=== PATIENT | female | born 1960 | race Caucasian/White ===

== ENCOUNTER 2018-10-17 13:41 | Emergency (ER) | payer BC ==
[~2018-10-17] VITALS: Ht 157.5 cm; Wt 83.0 kg
[2018-10-17 13:51] VITALS: BP 143/88
[2018-10-17] MEDS ORDERED: LEVO750T21 PO (14:51)
== END 2018-10-17 14:58 | disposition home or self-care (01) ==
LOC: ER 13:42
DX: J18.9 Pneumonia, unspecified organism (principal)
CPT/HCPCS: 71046; 99283

== ENCOUNTER 2019-10-08 20:09 | Emergency (ER) | payer BC ==
[~2019-10-08] VITALS: Ht 157.5 cm; Wt 86.3 kg
[2019-10-08] MEDS ORDERED: normal saline 1000ML IV soln IVB ONE (21:00)
[2019-10-08] MEDS ORDERED: normal saline 1000ML IV soln IV ONE (21:00)
[2019-10-08 21:02] LABS: BASOPHILS # (AUTO) 0.1 X10'3 (0-0.2); BASOPHILS % (AUTO) 0.4 % (0-1); EOSINOPHILS # (AUTO) 0.7 X10'3 (0-0.9); EOSINOPHILS % (AUTO) 4.4 % (0-6); HEMATOCRIT 43.4 % (35.0-45.0); HEMOGLOBIN 14.4 g/dl (12.0-16.0); LYMPHOCYTES # (AUTO) 1.1 X10'3 (1.1-4.8); LYMPHOCYTES % (AUTO) 6.9 % (21-51); MEAN CORPUSCULAR HEMOGLOBIN 29.1 PG (27.0-31.0); MEAN CORPUSCULAR HGB CONC 33.1 g/dL (33.0-36.5); MEAN CORPUSCULAR VOLUME 87.8 FL (78-98); MEAN PLATELET VOLUME 8.7 FL (7.4-10.4); MONOCYTES # (AUTO) 0.9 X10'3 (0-0.9); MONOCYTES % (AUTO) 5.5 % (2-12); NEUTROPHILS # (AUTO) 13.4 X10'3 (1.8-7.7); NEUTROPHILS % (AUTO) 82.8 % (42-75); PLATELET COUNT 192 X10'3 (140-440); RED BLOOD COUNT 4.94 X10'6 (4.20-5.60); RED CELL DISTRIBUTION WIDTH 13.9 % (11.5-14.5); WHITE BLOOD COUNT 16.1 X10'3 (4.5-11.0)
[2019-10-08 21:10] LABS: PARTIAL THROMBOPLASTIN TIME 25 SECONDS (22-32)
[2019-10-08 21:14] LABS: ALANINE AMINOTRANSFERASE 23 U/L (12-78); ALBUMIN 3.8 G/DL (3.4-5.0); ALBUMIN/GLOBULIN RATIO 1.1 (1.1-1.5); ALKALINE PHOSPHATASE 86 IU/L (46-116); ANION GAP 7 (8-16); ASPARTATE AMINO TRANSFERASE 16 U/L (10-37); BILIRUBIN,TOTAL 0.5 MG/DL (0.1-1.0); BLOOD UREA NITROGEN 18 MG/DL (7-18); BUN/CREATININE RATIO 16.7 (6.6-38.0); CALCIUM 8.7 MG/DL (8.5-10.1); CHLORIDE 106 MMOL/L (99-107); CREATININE 1.08 MG/DL (0.40-0.90); GLUCOSE 130 MG/DL (70-104); POTASSIUM 4.2 MMOL/L (3.5-5.1); SODIUM 140 MMOL/L (135-145); TOTAL CARBON DIOXIDE 27.2 MMOL/L (24-32); TOTAL PROTEIN 7.2 G/DL (6.4-8.2); eGFR 52 ML/MIN
[2019-10-08 21:25] LABS: C-REACTIVE PROTEIN 2.77 MG/DL (0.0-0.5); LACTATE DEHYDROGENASE 275 U/L (81-234)
[2019-10-08] MEDS ORDERED: AMOX-117 PO (21:37)
--- NOTE | 2019-10-08 21:38 | NUR ---
PATIENT'S IV INFILTRATED, GRACIE IBRAHIM AWARE VERBAL ORDER TO DC IV AND FLUIDS. PATIENT ABLE TO DRINK FLUIDS ORALLY AT THIS TIME
[2019-10-08 21:40] VITALS: BP 173/86
== END 2019-10-08 22:19 | disposition home or self-care (01) ==
LOC: ER 20:09
DX: J18.9 Pneumonia, unspecified organism (principal); Z20.828 Contact with and (suspected) exposure to other viral communicable diseases; R06.02 Shortness of breath; R05 Cough; R50.9 Fever, unspecified; Z79.2 Long term (current) use of antibiotics
CPT/HCPCS: 36415; 71045; 80053; 83605; 83615; 83880; 84145; 85025; 85610; 85730; 86140; 87040; 87635; 93005; 99285

== ENCOUNTER 2019-10-11 16:18 | Inpatient (IN) | payer BC ==
[~2019-10-11] VITALS: Ht 157.5 cm; Wt 86.3 kg
[~2019-10-11 16:18] MED LIST: AMOX-117 PO
[2019-10-11 17:03] LABS: BASOPHILS % (AUTO) 0.3 % (0-1); EOSINOPHILS # (AUTO) 0.4 X10'3 (0-0.9); EOSINOPHILS % (AUTO) 3.4 % (0-6); HEMATOCRIT 39.1 % (35.0-45.0); HEMOGLOBIN 13.1 g/dl (12.0-16.0); LYMPHOCYTES # (AUTO) 0.4 X10'3 (1.1-4.8); LYMPHOCYTES % (AUTO) 3.4 % (21-51); MEAN CORPUSCULAR HEMOGLOBIN 29.1 PG (27.0-31.0); MEAN CORPUSCULAR HGB CONC 33.4 g/dL (33.0-36.5); MEAN CORPUSCULAR VOLUME 87.1 FL (78-98); MEAN PLATELET VOLUME 9.1 FL (7.4-10.4); MONOCYTES # (AUTO) 0.7 X10'3 (0-0.9); MONOCYTES % (AUTO) 5.1 % (2-12); NEUTROPHILS # (AUTO) 11.4 X10'3 (1.8-7.7); NEUTROPHILS % (AUTO) 87.8 % (42-75); PLATELET COUNT 180 X10'3 (140-440); RED BLOOD COUNT 4.49 X10'6 (4.20-5.60); RED CELL DISTRIBUTION WIDTH 14.1 % (11.5-14.5)
[2019-10-11 17:13] LABS: PARTIAL THROMBOPLASTIN TIME 31 SECONDS (22-32)
[2019-10-11 17:19] LABS: ALANINE AMINOTRANSFERASE 27 U/L (12-78); ALBUMIN 2.8 G/DL (3.4-5.0); ALBUMIN/GLOBULIN RATIO 0.6 (1.1-1.5); ALKALINE PHOSPHATASE 109 IU/L (46-116); ANION GAP 10 (8-16); ASPARTATE AMINO TRANSFERASE 20 U/L (10-37); BILIRUBIN,TOTAL 0.6 MG/DL (0.1-1.0); BLOOD UREA NITROGEN 13 MG/DL (7-18); BUN/CREATININE RATIO 14.8 (6.6-38.0); CALCIUM 9.3 MG/DL (8.5-10.1); CHLORIDE 100 MMOL/L (99-107); CREATININE 0.88 MG/DL (0.40-0.90); GLUCOSE 146 MG/DL (70-104); POTASSIUM 3.4 MMOL/L (3.5-5.1); SODIUM 137 MMOL/L (135-145); TOTAL CARBON DIOXIDE 27.4 MMOL/L (24-32); TOTAL PROTEIN 7.7 G/DL (6.4-8.2); eGFR 66 ML/MIN
[2019-10-11 17:23] LABS: TOTAL CELLS COUNTED 100
[2019-10-11 17:25] LABS: PLATELET ESTIMATE NORMAL; POLYCHROMASIA FEW
[2019-10-11] MEDS ORDERED: normal saline 1000ML IV soln IVB ONE (17:45)
[2019-10-11] MEDS ORDERED: CefTRIAXone/D5W-Rocephin 1gm 50 ML IV ONE (17:45)
[2019-10-11] MEDS ORDERED: azithromycin/NS 500mg/250ml 250 ML IV ONE (17:45)
[2019-10-11] MEDS ORDERED: morphine 2 MG/ML inj. syringe IV ONE (17:45)
--- NOTE | 2019-10-11 18:18 | NUR ---
PT IS A DIFFICULT IV START, SYMONE RAMOS WILL TRY TO START IV WITH ASSIST OF US.
[2019-10-11] MEDS ORDERED: morphine 4 MG/ML inj SYRINge IM ONE (18:30)
[2019-10-11] MEDS ORDERED: ondansetron/PF 4mg/2ml inj IV ONE (18:45)
[2019-10-11] MEDS ORDERED: acetaminophen 325mg tablet PO ONE (19:05)
[2019-10-11] MEDS ORDERED: fentaNYL/PF 50MCG/1 ML 2ML syringe IV ONE (19:10)
[2019-10-11] MEDS ORDERED: magnesium 4gm in 100ml NS 100 ML IV PRN (19:20)
[2019-10-11] MEDS ORDERED: ipratropium/albuterol 3ml nebule NEB PRN (19:20)
[2019-10-11] MEDS ORDERED: magnesium Cl slow-release 64mg tablet PO PRN (19:20)
[2019-10-11] MEDS ORDERED: mag hydrox/Alum hydrox/simeth 30ml oral suspension PO PRN (19:20)
[2019-10-11] MEDS ORDERED: magnesium 2GM in 50ml NS 50 ML IV PRN (19:20)
[2019-10-11] MEDS ORDERED: potassium Cl 20 mEq SR tablet PO PRN (19:20)
[2019-10-11] MEDS ORDERED: ondansetron/PF 4mg/2ml inj IV PRN (19:20)
[2019-10-11] MEDS ORDERED: potassium CL 10mEq/100ml bag 100 ML IV PRN ×2 (19:20)
[2019-10-11] MEDS ORDERED: normal saline 1000ml 1,000 ML IV SCH (20:25)
[2019-10-11] MEDS ORDERED: iohexol 350MG/ML 100ml bottle IV ONE (20:41)
[2019-10-11] MEDS ORDERED: HYDR-3972 PO (21:23)
[2019-10-11] MEDS ORDERED: FLUT1BLS3 INH (21:23)
[2019-10-11] MEDS ORDERED: TRAZ-251 PO (21:23)
[2019-10-11] MEDS: normal saline 1000ml 1,000 ML IV SCH (21:45)
[2019-10-11] MEDS: K and/or MAG REPLACEMENT MC SCH (21:50)
--- NOTE | 2019-10-11 21:50 | NUR ---
Received report from Jane ASHBY in the ER. Pt arrived on the unit via gurney on R/A and was able to ambulate to her bed. IV was SL. Pt had no signs of distress, although she was very painful, 02/17. Will continue to monitor.
[2019-10-11] MEDS ORDERED: HYDROmorphone inj. 0.5 MG/0.5 ML DISP.SYRIN IV PRN (21:55)
[2019-10-11 22:00] VITALS: BP 135/78
[2019-10-11] MEDS: oxyCODONE IR 5mg (immed. release) tablet PO PRN (22:25)
[2019-10-12] MEDS: piperacillin/tazo 4.5gm/100ml 100 ML IV SCH ×4 (00:34→23:59)
[2019-10-12] MEDS: HYDROmorphone 1 mg/ml syringe IV PRN (00:34)
[2019-10-12] MEDS: albuterol 2.5 MG/3 ML nebule NEB SCH ×3 (03:00→20:19)
[2019-10-12 04:49] LABS: BASOPHILS % (AUTO) 0.2 % (0-1); EOSINOPHILS # (AUTO) 0.1 X10'3 (0-0.9); EOSINOPHILS % (AUTO) 0.6 % (0-6); HEMATOCRIT 37.8 % (35.0-45.0); HEMOGLOBIN 12.5 g/dl (12.0-16.0); LYMPHOCYTES # (AUTO) 0.6 X10'3 (1.1-4.8); LYMPHOCYTES % (AUTO) 4.6 % (21-51); MEAN CORPUSCULAR HEMOGLOBIN 28.9 PG (27.0-31.0); MEAN CORPUSCULAR HGB CONC 33.1 g/dL (33.0-36.5); MEAN CORPUSCULAR VOLUME 87.3 FL (78-98); MEAN PLATELET VOLUME 9.4 FL (7.4-10.4); MONOCYTES % (AUTO) 7.8 % (2-12); NEUTROPHILS # (AUTO) 11.1 X10'3 (1.8-7.7); NEUTROPHILS % (AUTO) 86.8 % (42-75); PLATELET COUNT 172 X10'3 (140-440); RED BLOOD COUNT 4.33 X10'6 (4.20-5.60); RED CELL DISTRIBUTION WIDTH 14.3 % (11.5-14.5); WHITE BLOOD COUNT 12.8 X10'3 (4.5-11.0)
[2019-10-12 05:04] LABS: ALANINE AMINOTRANSFERASE 24 U/L (12-78); ALBUMIN 2.3 G/DL (3.4-5.0); ALBUMIN/GLOBULIN RATIO 0.5 (1.1-1.5); ALKALINE PHOSPHATASE 100 IU/L (46-116); ANION GAP 6 (8-16); ASPARTATE AMINO TRANSFERASE 15 U/L (10-37); BILIRUBIN,TOTAL 0.4 MG/DL (0.1-1.0); BLOOD UREA NITROGEN 11 MG/DL (7-18); BUN/CREATININE RATIO 12.6 (6.6-38.0); CALCIUM 8.5 MG/DL (8.5-10.1); CHLORIDE 102 MMOL/L (99-107); CREATININE 0.87 MG/DL (0.40-0.90); GLUCOSE 132 MG/DL (70-104); MAGNESIUM 1.9 MG/DL (1.5-2.4); POTASSIUM 3.8 MMOL/L (3.5-5.1); SODIUM 134 MMOL/L (135-145); TOTAL PROTEIN 6.6 G/DL (6.4-8.2); eGFR 67 ML/MIN
[2019-10-12 05:11] LABS: CLARITY,URINE CLEAR (Clear); COLOR,URINE YELLOW (Yellow); GLUCOSE, URINE NEGATIVE (Neg); KETONES,URINE TRACE mg/dl (Neg); LEUKOCYTE ESTERASE ,URINE NEGATIVE (Neg); NITRITES, URINE NEGATIVE (Neg); OCCULT BLOOD,URINE NEGATIVE (Neg); PROTEIN,URINE 100 mg/dl (Neg)
[2019-10-12 05:16] LABS: UA COLLECTION TYPE NON-SPECIFIED
[2019-10-12 05:17] LABS: BACTERIA,URINE NONE SEEN /HPF (Neg); RBC,URINE 0-2 /HPF (0-2); SQUAMOUS EPITHELIAL CELL,UR FEW /LPF (FEW); WBC,URINE 0-4 /HPF (0-4)
[2019-10-12] MEDS: normal saline 1000ml 1,000 ML IV SCH ×2 (05:41→15:16)
[2019-10-12] MEDS: acetaminophen 325mg tablet PO PRN ×2 (05:42→16:32)
[2019-10-12] MEDS: oxyCODONE IR 5mg (immed. release) tablet PO PRN ×3 (05:43→20:18)
[2019-10-12 06:00] VITALS: BP 151/86
--- NOTE | 2019-10-12 06:49 | NUR ---
Problems reprioritized. Patient report given, questions answered & plan of care reviewed with Blanca ASHBY.
--- NOTE | 2019-10-12 07:11 | NUR ---
Patient in room ORTH[facility] 4018. I have received report from SYMONE IRIZARRY and had the opportunity to ask questions and assume patient care.
[2019-10-12] MEDS: K and/or MAG REPLACEMENT MC SCH ×2 (07:25→19:27)
[2019-10-12] MEDS: budesonide 0.5mg/2ml UD nebule IH SCH ×2 (08:39→19:57)
[2019-10-12] MEDS: enoxaparin 40mg/0.4ml syringe SQ SCH (09:07)
[2019-10-12 10:00] VITALS: BP 130/77
[2019-10-12] MEDS ORDERED: pneumococcal 23-VAL P-sac vacc 25 mcg/0.5ml vial IMVAC ONE (10:00)
[2019-10-12] MEDS: VANCOmycin 1250MG/NS 250ml Bag 250 ML IV SCH ×2 (12:52→22:11)
[2019-10-12] MEDS: azithromycin 250mg tablet PO SCH (12:55)
[2019-10-12 18:00] VITALS: BP 155/93
--- NOTE | 2019-10-12 18:22 | NUR ---
Patient in room ORTHO 4018. I have received report from Blanca ASHBY and had the opportunity to ask questions and assume patient care.
--- NOTE | 2019-10-12 18:43 | NUR ---
Problems reprioritized. Patient report given, questions answered & plan of care reviewed with SYMONE IRIZARRY.
[2019-10-12] MEDS: lactobacillus rhamnosus 10,000 MMU CELLS/CAPSULE PO SCH (20:17)
[2019-10-12] MEDS: traZODone 50mg tablet PO SCH (20:18)
[2019-10-12 22:00] VITALS: BP 152/87
[2019-10-13] MEDS: HYDROmorphone 1 mg/ml syringe IV PRN (00:15)
[2019-10-13] MEDS: albuterol 2.5 MG/3 ML nebule NEB SCH ×4 (03:00→20:17)
[2019-10-13] MEDS: normal saline 1000ml 1,000 ML IV SCH ×3 (03:30→21:35)
[2019-10-13 05:00] LABS: BASOPHILS % (AUTO) 0.2 % (0-1); EOSINOPHILS # (AUTO) 0.1 X10'3 (0-0.9); EOSINOPHILS % (AUTO) 1.2 % (0-6); HEMATOCRIT 36.1 % (35.0-45.0); LYMPHOCYTES # (AUTO) 0.7 X10'3 (1.1-4.8); MEAN CORPUSCULAR HGB CONC 33.4 g/dL (33.0-36.5); MEAN PLATELET VOLUME 8.7 FL (7.4-10.4); MONOCYTES # (AUTO) 1.2 X10'3 (0-0.9); MONOCYTES % (AUTO) 10.3 % (2-12); NEUTROPHILS # (AUTO) 9.3 X10'3 (1.8-7.7); NEUTROPHILS % (AUTO) 82.3 % (42-75); PLATELET COUNT 178 X10'3 (140-440); RED BLOOD COUNT 4.15 X10'6 (4.20-5.60); RED CELL DISTRIBUTION WIDTH 14.4 % (11.5-14.5); WHITE BLOOD COUNT 11.3 X10'3 (4.5-11.0)
[2019-10-13 05:13] LABS: ALANINE AMINOTRANSFERASE 20 U/L (12-78); ALBUMIN/GLOBULIN RATIO 0.5 (1.1-1.5); ALKALINE PHOSPHATASE 93 IU/L (46-116); ANION GAP 8 (8-16); ASPARTATE AMINO TRANSFERASE 17 U/L (10-37); BILIRUBIN,TOTAL 0.4 MG/DL (0.1-1.0); BLOOD UREA NITROGEN 12 MG/DL (7-18); BUN/CREATININE RATIO 8.7 (6.6-38.0); CALCIUM 8.7 MG/DL (8.5-10.1); CHLORIDE 101 MMOL/L (99-107); CREATININE 1.38 MG/DL (0.40-0.90); GLUCOSE 135 MG/DL (70-104); MAGNESIUM 2.1 MG/DL (1.5-2.4); POTASSIUM 3.4 MMOL/L (3.5-5.1); SODIUM 136 MMOL/L (135-145); TOTAL PROTEIN 6.2 G/DL (6.4-8.2); eGFR 39 ML/MIN
[2019-10-13 06:00] VITALS: BP 147/81
--- NOTE | 2019-10-13 06:33 | NUR ---
Problems reprioritized. Patient report given, questions answered & plan of care reviewed with Susan ASHBY.
[2019-10-13 06:50] LABS: PLATELET ESTIMATE NORMAL; TOTAL CELLS COUNTED 100
--- NOTE | 2019-10-13 06:50 | NUR ---
Patient in room ORTHO 4009. I have received report from SYMONE Rios and had the opportunity to ask questions and assume patient care.
[2019-10-13] MEDS: K and/or MAG REPLACEMENT MC SCH ×2 (07:31→19:04)
[2019-10-13] MEDS: azithromycin 250mg tablet PO SCH (08:00)
[2019-10-13] MEDS: oxyCODONE IR 5mg (immed. release) tablet PO PRN ×3 (08:02→19:58)
[2019-10-13] MEDS: potassium Cl 20 mEq SR tablet PO PRN ×3 (08:02→17:24)
[2019-10-13] MEDS: lactobacillus rhamnosus 10,000 MMU CELLS/CAPSULE PO SCH ×2 (08:02→19:57)
[2019-10-13] MEDS: enoxaparin 40mg/0.4ml syringe SQ SCH (08:05)
[2019-10-13] MEDS: budesonide 0.5mg/2ml UD nebule IH SCH ×2 (08:41→20:17)
[2019-10-13] MEDS: piperacillin/tazo 4.5gm/100ml 100 ML IV SCH ×3 (09:50→23:46)
[2019-10-13] MEDS: magnesium hydroxide 30ml (MOM) UD suspension PO PRN (09:51)
[2019-10-13 10:00] VITALS: BP 132/76
[2019-10-13 18:00] VITALS: BP 156/73
--- NOTE | 2019-10-13 18:08 | NUR ---
Patient in room ORTHO 4013. I have received report from Susan ASHBY and had the opportunity to ask questions and assume patient care.
--- NOTE | 2019-10-13 18:10 | NUR ---
Problems reprioritized. Patient report given, questions answered & plan of care reviewed with SYMONE Higuera.
[2019-10-13] MEDS: traZODone 50mg tablet PO SCH (20:05)
[2019-10-13 22:00] VITALS: BP 151/86
[2019-10-13] MEDS ORDERED: VANCOmycin 1250MG/NS 250ml Bag 250 ML IV SCH (22:00)
[2019-10-13] MEDS: metoprolol succinate 25mg (24-HOUR) SR. Tablet PO SCH (23:08)
[2019-10-13 23:10] VITALS: BP 151/77
[2019-10-14] VITALS (7 sets, daily range): BP systolic 131–168; BP diastolic 70–97
--- NOTE | 2019-10-14 00:06 | NUR ---
Problems reprioritized. Patient report given, questions answered & plan of care reviewed with Blanca ASHBY.
--- NOTE | 2019-10-14 00:11 | NUR ---
Patient in room ORTHO 4013. I have received report from Davida ASHBY and had the opportunity to ask questions and assume patient care.
[2019-10-14] MEDS: oxyCODONE IR 5mg (immed. release) tablet PO PRN ×4 (02:03→20:33)
[2019-10-14] MEDS: albuterol 2.5 MG/3 ML nebule NEB SCH ×5 (03:00→20:28)
--- NOTE | 2019-10-14 06:31 | NUR ---
Patient in room ORTHO 4013B. I have received report from SYMONE ZAYAS and had the opportunity to ask questions and assume patient care.
--- NOTE | 2019-10-14 06:32 | NUR ---
Patient in room ORTHO 4013. I have received report from Blanca ASHBY and had the opportunity to ask questions and assume patient care.
[2019-10-14 06:35] LABS: BASOPHILS % (AUTO) 0.3 % (0-1); EOSINOPHILS # (AUTO) 0.2 X10'3 (0-0.9); EOSINOPHILS % (AUTO) 1.7 % (0-6); HEMATOCRIT 34.1 % (35.0-45.0); HEMOGLOBIN 11.4 g/dl (12.0-16.0); LYMPHOCYTES # (AUTO) 0.9 X10'3 (1.1-4.8); LYMPHOCYTES % (AUTO) 9.3 % (21-51); MEAN CORPUSCULAR HEMOGLOBIN 29.1 PG (27.0-31.0); MEAN CORPUSCULAR HGB CONC 33.4 g/dL (33.0-36.5); MEAN CORPUSCULAR VOLUME 87.1 FL (78-98); MEAN PLATELET VOLUME 8.9 FL (7.4-10.4); MONOCYTES # (AUTO) 1.4 X10'3 (0-0.9); MONOCYTES % (AUTO) 14.2 % (2-12); NEUTROPHILS # (AUTO) 7.6 X10'3 (1.8-7.7); NEUTROPHILS % (AUTO) 74.5 % (42-75); PLATELET COUNT 206 X10'3 (140-440); RED BLOOD COUNT 3.92 X10'6 (4.20-5.60); RED CELL DISTRIBUTION WIDTH 14.3 % (11.5-14.5); WHITE BLOOD COUNT 10.2 X10'3 (4.5-11.0)
[2019-10-14 06:50] LABS: ALANINE AMINOTRANSFERASE 28 U/L (12-78); ALBUMIN 1.8 G/DL (3.4-5.0); ALBUMIN/GLOBULIN RATIO 0.4 (1.1-1.5); ALKALINE PHOSPHATASE 108 IU/L (46-116); ANION GAP 7 (8-16); ASPARTATE AMINO TRANSFERASE 22 U/L (10-37); BILIRUBIN,TOTAL 0.5 MG/DL (0.1-1.0); BLOOD UREA NITROGEN 14 MG/DL (7-18); BUN/CREATININE RATIO 7.9 (6.6-38.0); CALCIUM 8.9 MG/DL (8.5-10.1); CHLORIDE 106 MMOL/L (99-107); CREATININE 1.78 MG/DL (0.40-0.90); GLUCOSE 112 MG/DL (70-104); MAGNESIUM 2.4 MG/DL (1.5-2.4); POTASSIUM 4.3 MMOL/L (3.5-5.1); SODIUM 141 MMOL/L (135-145); TOTAL CARBON DIOXIDE 28.1 MMOL/L (24-32); TOTAL PROTEIN 6.2 G/DL (6.4-8.2); eGFR 29 ML/MIN
[2019-10-14 07:24] LABS: TOTAL CELLS COUNTED 100
[2019-10-14 07:25] LABS: PLATELET ESTIMATE NORMAL
[2019-10-14] MEDS: piperacillin/tazo 4.5gm/100ml 100 ML IV SCH ×2 (07:59→16:39)
[2019-10-14] MEDS: K and/or MAG REPLACEMENT MC SCH ×2 (08:00→20:00)
[2019-10-14] MEDS: magnesium hydroxide 30ml (MOM) UD suspension PO PRN (08:09)
[2019-10-14] MEDS: azithromycin 250mg tablet PO SCH (08:11)
[2019-10-14] MEDS: metoprolol succinate 25mg (24-HOUR) SR. Tablet PO SCH (08:12)
[2019-10-14] MEDS: lactobacillus rhamnosus 10,000 MMU CELLS/CAPSULE PO SCH ×2 (08:12→19:37)
[2019-10-14] MEDS: enoxaparin 40mg/0.4ml syringe SQ SCH (08:14)
[2019-10-14] MEDS: budesonide 0.5mg/2ml UD nebule IH SCH ×2 (08:21→19:51)
[2019-10-14] MEDS ORDERED: METO-395 PO (09:45)
[2019-10-14] MEDS ORDERED: ALBU8.5H8 INH (09:45)
[2019-10-14] MEDS ORDERED: LACT1CAP26 PO (09:45)
[2019-10-14] MEDS ORDERED: CEFD300C3 PO (09:45)
[2019-10-14] MEDS ORDERED: normal saline 1000ml 1,000 ML IV ONE (09:50)
[2019-10-14] MEDS ORDERED: pneumococcal 23-VAL P-sac vacc 25 mcg/0.5ml vial IMVAC ONE (10:00)
[2019-10-14] MEDS ORDERED: metoprolol succinate 25mg (24-HOUR) SR. Tablet PO ONE (15:50)
[2019-10-14] MEDS: normal saline 1000ml 1,000 ML IV SCH (16:41)
--- NOTE | 2019-10-14 18:34 | NUR ---
Patient in room ORTHO 4013. I have received report from EDIE ASHBY and had the opportunity to ask questions and assume patient care. Patient is in the room resting watching TV.
--- NOTE | 2019-10-14 18:40 | NUR ---
Problems reprioritized. Patient report given, questions answered & plan of care reviewed with SYMONE SANTORO.
[2019-10-14] MEDS: heparin, porcine 5000 units/ml vial SQ SCH (19:38)
[2019-10-14] MEDS ORDERED: enoxaparin 30mg/0.3ml syringe SUBCUT SCH (20:00)
[2019-10-14] MEDS: traZODone 50mg tablet PO SCH (20:32)
[2019-10-14] MEDS ORDERED: VANCOMYCIN LEVEL IV ONE (21:30)
[2019-10-15] VITALS (7 sets, daily range): BP systolic 137–179; BP diastolic 68–97
[2019-10-15] MEDS: piperacillin/tazo 4.5gm/100ml 100 ML IV SCH ×2 (00:05→07:57)
[2019-10-15] MEDS: oxyCODONE IR 5mg (immed. release) tablet PO PRN ×3 (02:42→15:55)
[2019-10-15] MEDS: albuterol 2.5 MG/3 ML nebule NEB SCH ×3 (02:56→15:07)
[2019-10-15] MEDS: normal saline 1000ml 1,000 ML IV SCH ×3 (05:10→20:07)
[2019-10-15 05:40] LABS: BASOPHILS % (AUTO) 0.5 % (0-1); EOSINOPHILS # (AUTO) 0.2 X10'3 (0-0.9); EOSINOPHILS % (AUTO) 1.8 % (0-6); HEMATOCRIT 32.3 % (35.0-45.0); HEMOGLOBIN 10.8 g/dl (12.0-16.0); LYMPHOCYTES % (AUTO) 10.3 % (21-51); MEAN CORPUSCULAR HGB CONC 33.4 g/dL (33.0-36.5); MEAN CORPUSCULAR VOLUME 86.7 FL (78-98); MEAN PLATELET VOLUME 8.4 FL (7.4-10.4); MONOCYTES # (AUTO) 1.3 X10'3 (0-0.9); MONOCYTES % (AUTO) 13.6 % (2-12); NEUTROPHILS # (AUTO) 7.2 X10'3 (1.8-7.7); NEUTROPHILS % (AUTO) 73.8 % (42-75); PLATELET COUNT 242 X10'3 (140-440); RED BLOOD COUNT 3.73 X10'6 (4.20-5.60); RED CELL DISTRIBUTION WIDTH 14.2 % (11.5-14.5); WHITE BLOOD COUNT 9.8 X10'3 (4.5-11.0)
[2019-10-15 06:06] LABS: ALANINE AMINOTRANSFERASE 32 U/L (12-78); ALBUMIN 1.8 G/DL (3.4-5.0); ALBUMIN/GLOBULIN RATIO 0.4 (1.1-1.5); ALKALINE PHOSPHATASE 136 IU/L (46-116); ANION GAP 7 (8-16); ASPARTATE AMINO TRANSFERASE 19 U/L (10-37); BILIRUBIN,TOTAL 0.5 MG/DL (0.1-1.0); BLOOD UREA NITROGEN 13 MG/DL (7-18); CALCIUM 8.6 MG/DL (8.5-10.1); CHLORIDE 106 MMOL/L (99-107); CREATININE 1.62 MG/DL (0.40-0.90); GLUCOSE 114 MG/DL (70-104); LACTATE DEHYDROGENASE 233 U/L (81-234); MAGNESIUM 2.4 MG/DL (1.5-2.4); POTASSIUM 3.8 MMOL/L (3.5-5.1); SODIUM 140 MMOL/L (135-145); TOTAL CARBON DIOXIDE 26.9 MMOL/L (24-32); eGFR 33 ML/MIN
--- NOTE | 2019-10-15 06:19 | NUR ---
Problems reprioritized. Patient report given, questions answered & plan of care reviewed with Yneni ASHBY.
--- NOTE | 2019-10-15 06:20 | NUR ---
Patient in room ORTHO 4013. I have received report from Kirsten ASHBY and had the opportunity to ask questions and assume patient care.
[2019-10-15 07:34] LABS: NUCLEATED RED BLOOD CELLS 1 /100WBC (0-0); PLATELET ESTIMATE NORMAL; TOTAL CELLS COUNTED 100
[2019-10-15] MEDS: heparin, porcine 5000 units/ml vial SQ SCH ×2 (07:57→20:02)
[2019-10-15] MEDS: lactobacillus rhamnosus 10,000 MMU CELLS/CAPSULE PO SCH ×2 (07:58→20:02)
[2019-10-15] MEDS: azithromycin 250mg tablet PO SCH (07:58)
[2019-10-15] MEDS: metoprolol succinate 25mg (24-HOUR) SR. Tablet PO SCH (07:58)
[2019-10-15] MEDS: K and/or MAG REPLACEMENT MC SCH ×2 (08:00→20:02)
[2019-10-15] MEDS ORDERED: enoxaparin 30mg/0.3ml syringe SUBCUT SCH (08:00)
[2019-10-15] MEDS: budesonide 0.5mg/2ml UD nebule IH SCH ×2 (09:15→20:28)
--- NOTE | 2019-10-15 14:00 | NUR ---
Patient to angio, for another CT guided thora.
[2019-10-15] MEDS ORDERED: fentaNYL/PF 50MCG/1 ML 2ML syringe ONE (14:16)
[2019-10-15] MEDS ORDERED: tPA-cathflo 2 MG/2 ml IV flush ONE (14:37)
[2019-10-15 15:25] LABS: BFSOURCE RIGHT PLEURAL FLD; PLEURAL FLUID PH 7.026 (7.63-7.65)
--- NOTE | 2019-10-15 15:40 | NUR ---
[place] at bedside to instill 4 mg Tpa
[2019-10-15 15:43] LABS: BF RBC COUNT 1130 /CU MM; BF WBC COUNT 430 /CU MM (0-1000); BFAPPEAR HAZY; BFCOLOR YELLOW; BFVOLUME 9.5 ML
[2019-10-15 15:50] LABS: GLUCOSE,BODY FLUID 54 MG/DL; LDH,BODY FLUID 1910 U/L; TOTAL PROTEIN,BODY FLUID 3.7 G/DL
[2019-10-15 15:54] LABS: LYMPHOCYTES,BODY FLUID 6 %; MONOCYTES,BODY FLUID 1 %; NEUTROPHILS,BODY FLUID 93 %
--- NOTE | 2019-10-15 15:58 | NUR ---
Initial: Pt admit w/ sepsis secondary to bilateral basilar PNA possibly community acquired vs aspiration per MD. Hx vomiting unable to keep things down prior to admit w/ no GI symptoms at this time. RN reports pt no issues w/ PO liquids/textures at this time. Pt PO 0-25% meals still having severe R chest pain w/ breathing and remains SOB per EMR. Pt seen by RD for written/verbal high protein ed w/ RD contact information provided. Pt reports lower appetite than normal at this time but is agreeable to strawberry or vanilla ensure enlive TIDWM; MD notified. LBM /. Will continue to monitor for additional protein needs. Rec: 1. continue regular diet; encourage PO 2. strawberry/vanilla ensure enlive TIDWM 3. bowel care as needed 4. wt per rx Addendum: 10/15/19 at [address] Amended: Links added.
[2019-10-15] MEDS ORDERED: amLODIPine 5mg tablet PO ONE (16:15)
--- NOTE | 2019-10-15 17:16 | NUR ---
Problems reprioritized. Patient report given, questions answered & plan of care reviewed with VIKTORIYA ASHBY.
--- NOTE | 2019-10-15 17:36 | NUR ---
PAGER ID: [phone] MESSAGE: [phone] Pauly Rae- she is very painful in her back where the chest tube was placed. PO oxy ineffective. unable to obtain iv access. Can she have additional PO for breakthrough?
[2019-10-15] MEDS: piperacillin/tazo 3.375gm/50ml 50 ML IV SCH (18:00)
[2019-10-15] MEDS: lactose-reduced food (Ensure Enlive) - 237ml bottle PO SCH (18:00)
--- NOTE | 2019-10-15 18:45 | NUR ---
Patient in room [facility] 354. I have received report from Lu ASHBY and had the opportunity to ask questions and assume patient care.
[2019-10-15] MEDS ORDERED: oxyCODONE IR 5mg (immed. release) tablet PO ONE (19:45)
--- NOTE | 2019-10-15 19:45 | NUR ---
Patient very SOB and increased pain at chest tube sight. Patient unable to take deep breath. Called MD and obtained chest xray.
[2019-10-15] MEDS: traZODone 50mg tablet PO SCH (20:46)
--- NOTE | 2019-10-15 21:30 | NUR ---
Patients chest tube was clamped due to TPA. Will unclamped and place to suction per MD orders. Canister reads amount at 140.
[2019-10-15] MEDS: HYDROmorphone 1 mg/ml syringe IV PRN (21:57)
[2019-10-16] VITALS: BP 137/92
[2019-10-16] MEDS: oxyCODONE IR 5mg (immed. release) tablet PO PRN ×4 (00:08→21:00)
[2019-10-16] MEDS: albuterol 2.5 MG/3 ML nebule NEB SCH ×4 (03:00→20:51)
[2019-10-16 05:03] LABS: BASOPHILS # (AUTO) 0.1 X10'3 (0-0.2); BASOPHILS % (AUTO) 0.4 % (0-1); EOSINOPHILS # (AUTO) 0.1 X10'3 (0-0.9); EOSINOPHILS % (AUTO) 0.6 % (0-6); HEMATOCRIT 36.8 % (35.0-45.0); LYMPHOCYTES # (AUTO) 1.4 X10'3 (1.1-4.8); LYMPHOCYTES % (AUTO) 9.2 % (21-51); MEAN CORPUSCULAR HEMOGLOBIN 28.4 PG (27.0-31.0); MEAN CORPUSCULAR HGB CONC 32.7 g/dL (33.0-36.5); MEAN CORPUSCULAR VOLUME 86.9 FL (78-98); MEAN PLATELET VOLUME 8.4 FL (7.4-10.4); MONOCYTES # (AUTO) 1.4 X10'3 (0-0.9); MONOCYTES % (AUTO) 9.2 % (2-12); NEUTROPHILS # (AUTO) 11.8 X10'3 (1.8-7.7); NEUTROPHILS % (AUTO) 80.6 % (42-75); PLATELET COUNT 299 X10'3 (140-440); RED BLOOD COUNT 4.23 X10'6 (4.20-5.60); RED CELL DISTRIBUTION WIDTH 14.4 % (11.5-14.5); WHITE BLOOD COUNT 14.7 X10'3 (4.5-11.0)
[2019-10-16 05:22] LABS: ALANINE AMINOTRANSFERASE 35 U/L (12-78); ALBUMIN 1.7 G/DL (3.4-5.0); ALBUMIN/GLOBULIN RATIO 0.4 (1.1-1.5); ALKALINE PHOSPHATASE 133 IU/L (46-116); ANION GAP 5 (8-16); ASPARTATE AMINO TRANSFERASE 18 U/L (10-37); BILIRUBIN,TOTAL 0.5 MG/DL (0.1-1.0); BLOOD UREA NITROGEN 9 MG/DL (7-18); BUN/CREATININE RATIO 6.1 (6.6-38.0); CALCIUM 8.3 MG/DL (8.5-10.1); CHLORIDE 103 MMOL/L (99-107); CREATININE 1.48 MG/DL (0.40-0.90); GLUCOSE 119 MG/DL (70-104); MAGNESIUM 2.2 MG/DL (1.5-2.4); POTASSIUM 3.8 MMOL/L (3.5-5.1); SODIUM 135 MMOL/L (135-145); TOTAL CARBON DIOXIDE 26.8 MMOL/L (24-32); TOTAL PROTEIN 5.8 G/DL (6.4-8.2); eGFR 36 ML/MIN
--- NOTE | 2019-10-16 05:39 | NUR ---
Marked canister on chest tube 1660ml.
--- NOTE | 2019-10-16 06:27 | NUR ---
Problems reprioritized. Patient report given, questions answered & plan of care reviewed with Lu ASHBY.
[2019-10-16 06:33] LABS: PLATELET ESTIMATE NORMAL; TOTAL CELLS COUNTED 100
[2019-10-16] MEDS: lactobacillus rhamnosus 10,000 MMU CELLS/CAPSULE PO SCH ×2 (07:55→19:32)
[2019-10-16] MEDS: amLODIPine 5mg tablet PO SCH (07:57)
[2019-10-16] MEDS: metoprolol succinate 25mg (24-HOUR) SR. Tablet PO SCH (07:58)
[2019-10-16] MEDS: heparin, porcine 5000 units/ml vial SQ SCH ×2 (07:59→19:32)
[2019-10-16] MEDS: normal saline 1000ml 1,000 ML IV SCH ×2 (07:59→21:01)
[2019-10-16] MEDS: azithromycin 250mg tablet PO SCH (07:59)
[2019-10-16] MEDS: K and/or MAG REPLACEMENT MC SCH ×2 (08:00→20:24)
[2019-10-16] MEDS: lactose-reduced food (Ensure Enlive) - 237ml bottle PO SCH ×3 (08:00→18:00)
[2019-10-16] MEDS: piperacillin/tazo 3.375gm/50ml 50 ML IV SCH ×4 (08:00→23:20)
[2019-10-16 08:56] VITALS: BP 136/78
[2019-10-16] MEDS: budesonide 0.5mg/2ml UD nebule IH SCH ×2 (08:57→20:51)
[2019-10-16 11:00] VITALS: BP 143/79
[2019-10-16] MEDS: HYDROmorphone 1 mg/ml syringe IV PRN ×2 (12:40→16:58)
[2019-10-16 17:15] LABS: HIV ANTIBODY 1&2 RAPID NON-REACTIVE (Neg)
[2019-10-16 18:00] VITALS: BP 146/77
--- NOTE | 2019-10-16 18:23 | NUR ---
Received report from Lu ASHBY and student RN Sheba ASHBY. Assumed patient care. Patient is awake and alert on 2.5L eating her dinner in no apparent distress. Call light and items of frequent use within reach. Chest tube in place with no complications to note.
[2019-10-16] MEDS: traZODone 50mg tablet PO SCH (21:00)
[2019-10-17 00:25] VITALS: BP 132/76
[2019-10-17] MEDS: oxyCODONE IR 5mg (immed. release) tablet PO PRN ×4 (01:16→21:08)
[2019-10-17] MEDS: albuterol 2.5 MG/3 ML nebule NEB SCH ×4 (02:13→19:53)
[2019-10-17 05:10] LABS: BASOPHILS # (AUTO) 0.1 X10'3 (0-0.2); BASOPHILS % (AUTO) 0.4 % (0-1); EOSINOPHILS # (AUTO) 0.4 X10'3 (0-0.9); EOSINOPHILS % (AUTO) 3.8 % (0-6); HEMOGLOBIN 10.9 g/dl (12.0-16.0); LYMPHOCYTES # (AUTO) 1.4 X10'3 (1.1-4.8); LYMPHOCYTES % (AUTO) 11.5 % (21-51); MEAN CORPUSCULAR HEMOGLOBIN 29.1 PG (27.0-31.0); MEAN CORPUSCULAR VOLUME 88.1 FL (78-98); MEAN PLATELET VOLUME 8.4 FL (7.4-10.4); MONOCYTES # (AUTO) 0.8 X10'3 (0-0.9); MONOCYTES % (AUTO) 6.9 % (2-12); NEUTROPHILS # (AUTO) 9.3 X10'3 (1.8-7.7); NEUTROPHILS % (AUTO) 77.4 % (42-75); PLATELET COUNT 286 X10'3 (140-440); RED BLOOD COUNT 3.75 X10'6 (4.20-5.60); RED CELL DISTRIBUTION WIDTH 14.3 % (11.5-14.5)
[2019-10-17 05:22] LABS: ALANINE AMINOTRANSFERASE 37 U/L (12-78); ALBUMIN 1.6 G/DL (3.4-5.0); ALBUMIN/GLOBULIN RATIO 0.4 (1.1-1.5); ALKALINE PHOSPHATASE 120 IU/L (46-116); ANION GAP 7 (8-16); ASPARTATE AMINO TRANSFERASE 22 U/L (10-37); BILIRUBIN,TOTAL 0.3 MG/DL (0.1-1.0); BLOOD UREA NITROGEN 12 MG/DL (7-18); BUN/CREATININE RATIO 8.4 (6.6-38.0); CALCIUM 8.3 MG/DL (8.5-10.1); CHLORIDE 106 MMOL/L (99-107); CREATININE 1.43 MG/DL (0.40-0.90); GLUCOSE 103 MG/DL (70-104); MAGNESIUM 2.2 MG/DL (1.5-2.4); POTASSIUM 3.5 MMOL/L (3.5-5.1); SODIUM 140 MMOL/L (135-145); TOTAL CARBON DIOXIDE 27.4 MMOL/L (24-32); TOTAL PROTEIN 5.6 G/DL (6.4-8.2); eGFR 38 ML/MIN
[2019-10-17 06:29] LABS: ANISOCYTOSIS 1+; PLATELET ESTIMATE NORMAL; TOTAL CELLS COUNTED 100
[2019-10-17 06:30] VITALS: BP 111/78
--- NOTE | 2019-10-17 06:35 | NUR ---
Patient in room [facility] 354. I have received report from SYMONE Raman and had the opportunity to ask questions and assume patient care.
--- NOTE | 2019-10-17 06:51 | NUR ---
Reported off to Debbie RN. Patient is resting with relaxed and unlabored respirations on room air. In no apparent distress. Call light and items of frequent use within reach. Addendum: 10/17/19 at 0651 by Danisha Yuen RN Reported off to Debbie RN. Patient is resting with relaxed and unlabored respirations on 2.5LNC In no apparent distress. Call light and items of frequent use within reach.
[2019-10-17] MEDS: K and/or MAG REPLACEMENT MC SCH ×2 (06:56→20:00)
[2019-10-17] MEDS: budesonide 0.5mg/2ml UD nebule IH SCH ×2 (07:29→19:52)
[2019-10-17] MEDS: lactose-reduced food (Ensure Enlive) - 237ml bottle PO SCH ×3 (08:00→18:00)
[2019-10-17] MEDS: lactobacillus rhamnosus 10,000 MMU CELLS/CAPSULE PO SCH ×2 (08:25→20:10)
[2019-10-17] MEDS: amLODIPine 5mg tablet PO SCH (08:25)
[2019-10-17] MEDS: metoprolol succinate 25mg (24-HOUR) SR. Tablet PO SCH (08:26)
[2019-10-17] MEDS: heparin, porcine 5000 units/ml vial SQ SCH ×2 (08:26→20:06)
[2019-10-17] MEDS: piperacillin/tazo 3.375gm/50ml 50 ML IV SCH ×2 (08:26→16:49)
[2019-10-17] MEDS: HYDROmorphone 1 mg/ml syringe IV PRN (08:50)
[2019-10-17 11:00] VITALS: BP 142/75
[2019-10-17 18:00] VITALS: BP 135/74
--- NOTE | 2019-10-17 18:45 | NUR ---
Problems reprioritized. Patient report given, questions answered & plan of care reviewed with Shaniqua Mcgovern RN.
--- NOTE | 2019-10-17 18:46 | NUR ---
Patient in room [facility] 354. I have received report from KESHAWN ASHBY and had the opportunity to ask questions and assume patient care.
[2019-10-17] MEDS: traZODone 50mg tablet PO SCH (20:10)
[2019-10-18] VITALS: BP 158/73
[2019-10-18] MEDS: piperacillin/tazo 3.375gm/50ml 50 ML IV SCH ×4 (00:18→23:38)
[2019-10-18] MEDS: oxyCODONE IR 5mg (immed. release) tablet PO PRN ×5 (02:55→21:38)
[2019-10-18] MEDS: albuterol 2.5 MG/3 ML nebule NEB SCH ×4 (03:00→19:23)
[2019-10-18 04:39] LABS: BASOPHILS # (AUTO) 0.1 X10'3 (0-0.2); BASOPHILS % (AUTO) 0.4 % (0-1); EOSINOPHILS # (AUTO) 0.5 X10'3 (0-0.9); EOSINOPHILS % (AUTO) 3.9 % (0-6); HEMATOCRIT 31.5 % (35.0-45.0); HEMOGLOBIN 10.4 g/dl (12.0-16.0); LYMPHOCYTES # (AUTO) 1.4 X10'3 (1.1-4.8); LYMPHOCYTES % (AUTO) 11.2 % (21-51); MEAN CORPUSCULAR HEMOGLOBIN 28.7 PG (27.0-31.0); MEAN CORPUSCULAR VOLUME 87.1 FL (78-98); MEAN PLATELET VOLUME 8.6 FL (7.4-10.4); MONOCYTES # (AUTO) 0.9 X10'3 (0-0.9); MONOCYTES % (AUTO) 7.1 % (2-12); NEUTROPHILS # (AUTO) 9.9 X10'3 (1.8-7.7); NEUTROPHILS % (AUTO) 77.4 % (42-75); PLATELET COUNT 362 X10'3 (140-440); RED BLOOD COUNT 3.62 X10'6 (4.20-5.60); WHITE BLOOD COUNT 12.8 X10'3 (4.5-11.0)
[2019-10-18 04:50] LABS: ALANINE AMINOTRANSFERASE 40 U/L (12-78); ALBUMIN 1.7 G/DL (3.4-5.0); ALBUMIN/GLOBULIN RATIO 0.4 (1.1-1.5); ALKALINE PHOSPHATASE 129 IU/L (46-116); ANION GAP 3 (8-16); ASPARTATE AMINO TRANSFERASE 22 U/L (10-37); BILIRUBIN,TOTAL 0.3 MG/DL (0.1-1.0); BLOOD UREA NITROGEN 9 MG/DL (7-18); BUN/CREATININE RATIO 6.2 (6.6-38.0); CALCIUM 8.1 MG/DL (8.5-10.1); CHLORIDE 106 MMOL/L (99-107); CREATININE 1.46 MG/DL (0.40-0.90); GLUCOSE 103 MG/DL (70-104); POTASSIUM 3.4 MMOL/L (3.5-5.1); SODIUM 139 MMOL/L (135-145); TOTAL CARBON DIOXIDE 30.1 MMOL/L (24-32); TOTAL PROTEIN 5.9 G/DL (6.4-8.2); eGFR 37 ML/MIN
--- NOTE | 2019-10-18 06:10 | NUR ---
Patient in room [facility] 354. I have received report from Shaniqua Mcgovern RN and had the opportunity to ask questions and assume patient care.
[2019-10-18 06:30] VITALS: BP 131/72
--- NOTE | 2019-10-18 06:30 | NUR ---
Problems reprioritized. Patient report given, questions answered & plan of care reviewed with KESHAWN RN.
[2019-10-18] MEDS: K and/or MAG REPLACEMENT MC SCH ×2 (06:43→20:00)
[2019-10-18 06:45] LABS: TOTAL CELLS COUNTED 100
[2019-10-18 06:46] LABS: PLATELET ESTIMATE NORMAL; POLYCHROMASIA 1+; TOXIC GRANULATION 1+
[2019-10-18] MEDS ORDERED: magnesium 4gm in 100ml NS 100 ML IV PRN (07:15)
[2019-10-18] MEDS ORDERED: magnesium Cl slow-release 64mg tablet PO PRN (07:15)
[2019-10-18] MEDS ORDERED: potassium Cl 20 mEq SR tablet PO PRN (07:15)
[2019-10-18] MEDS ORDERED: magnesium 2GM in 50ml NS 50 ML IV PRN (07:15)
[2019-10-18] MEDS ORDERED: potassium CL 10mEq/100ml bag 100 ML IV PRN (07:15)
[2019-10-18] MEDS: budesonide 0.5mg/2ml UD nebule IH SCH ×2 (07:24→19:23)
[2019-10-18] MEDS: lactose-reduced food (Ensure Enlive) - 237ml bottle PO SCH ×3 (08:00→18:00)
[2019-10-18] MEDS: amLODIPine 5mg tablet PO SCH (08:16)
[2019-10-18] MEDS: lactobacillus rhamnosus 10,000 MMU CELLS/CAPSULE PO SCH ×2 (08:16→19:50)
[2019-10-18] MEDS: metoprolol succinate 25mg (24-HOUR) SR. Tablet PO SCH (08:17)
[2019-10-18] MEDS: heparin, porcine 5000 units/ml vial SQ SCH ×2 (08:17→19:50)
[2019-10-18] MEDS: potassium Cl 20 mEq SR tablet PO PRN ×3 (09:11→17:31)
[2019-10-18] MEDS ORDERED: pneumococcal 23-VAL P-sac vacc 25 mcg/0.5ml vial IMVAC ONE (10:00)
[2019-10-18 11:00] VITALS: BP 124/70
--- NOTE | 2019-10-18 15:28 | NUR ---
PATIENT STATED THE DOCTOR WAS OKAY WITH PRN SVN TX'S BUT NO ORDER HAS BEEN PUT IN TO CHANGE SCHEDULED TX'S. NO RESPIRATORY DISTRESS NOTED, PT 91% ROOM AIR AND IS AWARE TO CALL IF BREATHING TX IS NEEDED. Addendum: 10/18/19 at 1530 by Erasmo Guerin RT Amended: Links added.
[2019-10-18 18:00] VITALS: BP 119/74
--- NOTE | 2019-10-18 18:10 | NUR ---
Problems reprioritized. Patient report given, questions answered & plan of care reviewed with SYMONE Mckeon. Addendum: 10/18/19 at 1828 by Debbie Gee RN [facility] note: Wrong pt
[2019-10-18] MEDS ORDERED: normal saline 1000ml 1,000 ML IV ONE (18:20)
[2019-10-18] MEDS ORDERED: normal saline 1000ml 1,000 ML IV SCH (18:20)
--- NOTE | 2019-10-18 18:20 | NUR ---
Problems reprioritized. Patient report given, questions answered & plan of care reviewed with SYMONE Baird.
[2019-10-18] MEDS: traZODone 50mg tablet PO SCH (19:50)
--- NOTE | 2019-10-18 21:11 | NUR ---
Patient in room [facility] 354. I have received report from SYMONE Lewis and had the opportunity to ask questions and assume patient care. Addendum: 10/18/19 at 2111 by Brie Chou RN Amended: Links added.
[2019-10-19 00:06] VITALS: BP 131/74
[2019-10-19] MEDS: oxyCODONE IR 5mg (immed. release) tablet PO PRN ×4 (05:06→20:51)
[2019-10-19 05:55] LABS: BASOPHILS # (AUTO) 0.1 X10'3 (0-0.2); BASOPHILS % (AUTO) 0.7 % (0-1); EOSINOPHILS # (AUTO) 0.5 X10'3 (0-0.9); EOSINOPHILS % (AUTO) 4.2 % (0-6); HEMATOCRIT 33.7 % (35.0-45.0); LYMPHOCYTES # (AUTO) 1.3 X10'3 (1.1-4.8); LYMPHOCYTES % (AUTO) 11.6 % (21-51); MEAN CORPUSCULAR HEMOGLOBIN 28.4 PG (27.0-31.0); MEAN CORPUSCULAR HGB CONC 32.6 g/dL (33.0-36.5); MEAN CORPUSCULAR VOLUME 86.9 FL (78-98); MEAN PLATELET VOLUME 8.6 FL (7.4-10.4); MONOCYTES # (AUTO) 0.8 X10'3 (0-0.9); MONOCYTES % (AUTO) 7.4 % (2-12); NEUTROPHILS # (AUTO) 8.4 X10'3 (1.8-7.7); NEUTROPHILS % (AUTO) 76.1 % (42-75); PLATELET COUNT 405 X10'3 (140-440); RED BLOOD COUNT 3.87 X10'6 (4.20-5.60); RED CELL DISTRIBUTION WIDTH 14.3 % (11.5-14.5)
[2019-10-19 06:02] LABS: ALANINE AMINOTRANSFERASE 51 U/L (12-78); ALBUMIN 1.8 G/DL (3.4-5.0); ALBUMIN/GLOBULIN RATIO 0.4 (1.1-1.5); ALKALINE PHOSPHATASE 134 IU/L (46-116); ANION GAP 8 (8-16); ASPARTATE AMINO TRANSFERASE 31 U/L (10-37); BILIRUBIN,TOTAL 0.4 MG/DL (0.1-1.0); BLOOD UREA NITROGEN 8 MG/DL (7-18); CALCIUM 8.5 MG/DL (8.5-10.1); CHLORIDE 106 MMOL/L (99-107); CREATININE 1.61 MG/DL (0.40-0.90); GLUCOSE 98 MG/DL (70-104); MAGNESIUM 2.2 MG/DL (1.5-2.4); POTASSIUM 3.8 MMOL/L (3.5-5.1); SODIUM 143 MMOL/L (135-145); TOTAL CARBON DIOXIDE 29.1 MMOL/L (24-32); TOTAL PROTEIN 6.3 G/DL (6.4-8.2); eGFR 33 ML/MIN
--- NOTE | 2019-10-19 06:07 | NUR ---
Problems reprioritized. Patient report given, questions answered & plan of care reviewed with SYMONE Claire. Addendum: 10/19/19 at 0609 by Brie Chou RN Amended: Links added.
--- NOTE | 2019-10-19 06:11 | NUR ---
Problems reprioritized. Patient report given, questions answered & plan of care reviewed with SYMONE Casillas. Addendum: 10/19/19 at 0611 by Brie Chou RN Amended: Links added.
--- NOTE | 2019-10-19 06:56 | NUR ---
Patient in room [facility] 354. I have received report from SYMONE CASTELLANO and had the opportunity to ask questions and assume patient care.
[2019-10-19 08:00] VITALS: BP 136/69
[2019-10-19] MEDS: K and/or MAG REPLACEMENT MC SCH ×2 (08:00→20:00)
[2019-10-19] MEDS: lactose-reduced food (Ensure Enlive) - 237ml bottle PO SCH ×4 (08:00→18:55)
[2019-10-19 08:31] LABS: PLATELET ESTIMATE NORMAL; TOTAL CELLS COUNTED 100
[2019-10-19] MEDS: lactobacillus rhamnosus 10,000 MMU CELLS/CAPSULE PO SCH ×2 (08:57→20:51)
[2019-10-19] MEDS: piperacillin/tazo 3.375gm/50ml 50 ML IV SCH ×3 (08:57→23:33)
[2019-10-19] MEDS: heparin, porcine 5000 units/ml vial SQ SCH ×2 (08:57→20:50)
[2019-10-19] MEDS: amLODIPine 5mg tablet PO SCH (08:58)
[2019-10-19] MEDS: metoprolol succinate 25mg (24-HOUR) SR. Tablet PO SCH (09:01)
[2019-10-19] MEDS: albuterol 2.5 MG/3 ML nebule NEB SCH ×3 (09:06→20:34)
[2019-10-19] MEDS: budesonide 0.5mg/2ml UD nebule IH SCH ×2 (09:06→20:34)
[2019-10-19 11:00] VITALS: BP 133/87
[2019-10-19] MEDS ORDERED: normal saline 1000ml 1,000 ML IV ONE (14:30)
--- NOTE | 2019-10-19 15:07 | NUR ---
Reassessment: Pt PO 25% first 6 days admit then made NPO for 2 days returning to regular diet today. Not meeting nutrient needs. Pt severe R chest pain each breath noted initially and is improving today per RN; likely to greatly impact PO given persistent pain. LBM 10/17. RD d/w who is agreeable to vanilla/strawberry ensure enlive TIDWM; pending MD order. Dietary is notified of pt flavor preferences if order is placed today. Pt has R CT in place w/ 15ml output down from 1760ml on 10/16. EF 70-75% per MD. Will continue to monitor for additional protein needs. Rec: 1. continue regular diet; encourage PO 2. strawberry/vanilla ensure enlive TIDWM; pending MD order 3. bowel care as needed 4. wt per rx Addendum: 10/19/19 at [address] Amended: Links added.
[2019-10-19] MEDS: normal saline 1000ml 1,000 ML IV SCH (16:33)
--- NOTE | 2019-10-19 18:17 | NUR ---
Problems reprioritized. Patient report given, questions answered & plan of care reviewed with SYMONE CASTELLANO.
[2019-10-19 20:00] VITALS: BP 138/75
[2019-10-19] MEDS: traZODone 50mg tablet PO SCH (20:50)
--- NOTE | 2019-10-19 21:41 | NUR ---
Patient in room [facility] 354. I have received report from SYMONE Claire and had the opportunity to ask questions and assume patient care. Addendum: 10/19/19 at 2142 by Brie Chou RN Amended: Links added.
[2019-10-20 00:28] VITALS: BP 118/56
[2019-10-20] MEDS: albuterol 2.5 MG/3 ML nebule NEB SCH ×2 (03:00→09:00)
[2019-10-20] MEDS: oxyCODONE IR 5mg (immed. release) tablet PO PRN ×4 (03:21→19:42)
[2019-10-20 05:37] LABS: BASOPHILS # (AUTO) 0.1 X10'3 (0-0.2); BASOPHILS % (AUTO) 0.7 % (0-1); EOSINOPHILS # (AUTO) 0.5 X10'3 (0-0.9); EOSINOPHILS % (AUTO) 5.3 % (0-6); HEMATOCRIT 31.6 % (35.0-45.0); HEMOGLOBIN 10.6 g/dl (12.0-16.0); LYMPHOCYTES # (AUTO) 1.3 X10'3 (1.1-4.8); LYMPHOCYTES % (AUTO) 13.2 % (21-51); MEAN CORPUSCULAR HEMOGLOBIN 29.4 PG (27.0-31.0); MEAN CORPUSCULAR HGB CONC 33.6 g/dL (33.0-36.5); MEAN CORPUSCULAR VOLUME 87.4 FL (78-98); MEAN PLATELET VOLUME 8.4 FL (7.4-10.4); MONOCYTES # (AUTO) 0.8 X10'3 (0-0.9); MONOCYTES % (AUTO) 8.4 % (2-12); NEUTROPHILS # (AUTO) 7.4 X10'3 (1.8-7.7); NEUTROPHILS % (AUTO) 72.4 % (42-75); PLATELET COUNT 424 X10'3 (140-440); RED BLOOD COUNT 3.61 X10'6 (4.20-5.60); RED CELL DISTRIBUTION WIDTH 14.3 % (11.5-14.5); WHITE BLOOD COUNT 10.1 X10'3 (4.5-11.0)
[2019-10-20 05:59] LABS: ALANINE AMINOTRANSFERASE 50 U/L (12-78); ALBUMIN 1.7 G/DL (3.4-5.0); ALBUMIN/GLOBULIN RATIO 0.4 (1.1-1.5); ALKALINE PHOSPHATASE 121 IU/L (46-116); ANION GAP 7 (8-16); ASPARTATE AMINO TRANSFERASE 22 U/L (10-37); BILIRUBIN,TOTAL 0.4 MG/DL (0.1-1.0); BLOOD UREA NITROGEN 9 MG/DL (7-18); BUN/CREATININE RATIO 5.5 (6.6-38.0); CALCIUM 8.4 MG/DL (8.5-10.1); CHLORIDE 109 MMOL/L (99-107); CREATININE 1.63 MG/DL (0.40-0.90); GLUCOSE 102 MG/DL (70-104); MAGNESIUM 2.2 MG/DL (1.5-2.4); POTASSIUM 3.8 MMOL/L (3.5-5.1); SODIUM 144 MMOL/L (135-145); TOTAL CARBON DIOXIDE 27.9 MMOL/L (24-32); TOTAL PROTEIN 6.3 G/DL (6.4-8.2); eGFR 32 ML/MIN
--- NOTE | 2019-10-20 06:23 | NUR ---
Problems reprioritized. Patient report given, questions answered & plan of care reviewed with SYMONE Bernal. Addendum: 10/20/19 at 0624 by Brie Chou RN Amended: Links added.
[2019-10-20 07:30] VITALS: BP 144/80
[2019-10-20] MEDS: metoprolol succinate 25mg (24-HOUR) SR. Tablet PO SCH (07:38)
[2019-10-20] MEDS: lactobacillus rhamnosus 10,000 MMU CELLS/CAPSULE PO SCH ×2 (07:38→20:55)
[2019-10-20] MEDS: amLODIPine 5mg tablet PO SCH (07:38)
[2019-10-20] MEDS: piperacillin/tazo 3.375gm/50ml 50 ML IV SCH (07:39)
[2019-10-20] MEDS: heparin, porcine 5000 units/ml vial SQ SCH ×2 (07:39→20:56)
[2019-10-20] MEDS: lactose-reduced food (Ensure Enlive) - 237ml bottle PO SCH ×6 (08:00→18:00)
[2019-10-20] MEDS: K and/or MAG REPLACEMENT MC SCH ×2 (08:00→20:00)
[2019-10-20] MEDS: budesonide 0.5mg/2ml UD nebule IH SCH (09:00)
[2019-10-20] MEDS: normal saline 1000ml 1,000 ML IV SCH (10:30)
[2019-10-20] MEDS ORDERED: normal saline 1000ml 1,000 ML IV ONE (11:50)
[2019-10-20] MEDS ORDERED: budesonide 0.5mg/2ml UD nebule IH PRN (11:55)
[2019-10-20] MEDS ORDERED: albuterol 2.5 MG/3 ML nebule NEB PRN (11:55)
[2019-10-20 13:11] VITALS: BP 139/65
[2019-10-20 13:47] LABS: ALBUMIN 1.8 G/DL (3.4-5.0); ANION GAP 4 (8-16); BLOOD UREA NITROGEN 10 MG/DL (7-18); BUN/CREATININE RATIO 6.7 (6.6-38.0); CALCIUM 8.1 MG/DL (8.5-10.1); CHLORIDE 108 MMOL/L (99-107); CREATININE 1.49 MG/DL (0.40-0.90); GLUCOSE 112 MG/DL (70-104); POTASSIUM 3.8 MMOL/L (3.5-5.1); SODIUM 143 MMOL/L (135-145); eGFR 36 ML/MIN
[2019-10-20] MEDS ORDERED: amox tr/potassium clavulanate 875/125mg TAB PO SCH ×2 (17:30)
[2019-10-20] MEDS: amox tr/potassium clavulanate 875/125mg TAB PO SCH ×2 (17:45→20:55)
--- NOTE | 2019-10-20 19:24 | NUR ---
Reassessment: PO Intake has improved greatly to average 75-100% for two days following PO of 25-49%. Drinking 75% average of Ensure Enlive. Pt is meeting nutrition needs. Documented with moderate liquid stools, possibly r/t antibiotics, is receiving a probiotic. Will continue to follow. Rec: 1. continue regular diet; encourage PO 2. strawberry/vanilla ensure enlive TIDWM 3. bowel care as needed 4. wt per rx Addendum: 10/20/19 at [address] Amended: Links added.
--- NOTE | 2019-10-20 19:48 | NUR ---
Patient to CT
--- NOTE | 2019-10-20 19:57 | NUR ---
Patient back from CT
[2019-10-20 20:00] VITALS: BP 140/77
[2019-10-20] MEDS: traZODone 50mg tablet PO SCH (20:55)
[2019-10-21] VITALS: BP 142/77
[2019-10-21] MEDS: normal saline 1000ml 1,000 ML IV SCH (03:13)
[2019-10-21] MEDS: oxyCODONE IR 5mg (immed. release) tablet PO PRN ×2 (04:23→15:40)
[2019-10-21 05:47] LABS: BASOPHILS # (AUTO) 0.1 X10'3 (0-0.2); BASOPHILS % (AUTO) 0.7 % (0-1); EOSINOPHILS # (AUTO) 0.6 X10'3 (0-0.9); EOSINOPHILS % (AUTO) 6.4 % (0-6); HEMATOCRIT 32.2 % (35.0-45.0); HEMOGLOBIN 10.7 g/dl (12.0-16.0); LYMPHOCYTES # (AUTO) 1.3 X10'3 (1.1-4.8); LYMPHOCYTES % (AUTO) 14.2 % (21-51); MEAN CORPUSCULAR HEMOGLOBIN 29.1 PG (27.0-31.0); MEAN CORPUSCULAR HGB CONC 33.4 g/dL (33.0-36.5); MEAN CORPUSCULAR VOLUME 87.2 FL (78-98); MEAN PLATELET VOLUME 8.5 FL (7.4-10.4); MONOCYTES # (AUTO) 0.9 X10'3 (0-0.9); MONOCYTES % (AUTO) 9.1 % (2-12); NEUTROPHILS # (AUTO) 6.6 X10'3 (1.8-7.7); NEUTROPHILS % (AUTO) 69.6 % (42-75); PLATELET COUNT 479 X10'3 (140-440); RED BLOOD COUNT 3.69 X10'6 (4.20-5.60); RED CELL DISTRIBUTION WIDTH 14.4 % (11.5-14.5); WHITE BLOOD COUNT 9.4 X10'3 (4.5-11.0)
[2019-10-21 06:01] LABS: ALANINE AMINOTRANSFERASE 57 U/L (12-78); ALBUMIN 1.8 G/DL (3.4-5.0); ALBUMIN/GLOBULIN RATIO 0.4 (1.1-1.5); ALKALINE PHOSPHATASE 107 IU/L (46-116); ANION GAP 7 (8-16); ASPARTATE AMINO TRANSFERASE 34 U/L (10-37); BILIRUBIN,TOTAL 0.3 MG/DL (0.1-1.0); BLOOD UREA NITROGEN 11 MG/DL (7-18); BUN/CREATININE RATIO 8.1 (6.6-38.0); CALCIUM 8.6 MG/DL (8.5-10.1); CHLORIDE 109 MMOL/L (99-107); CREATININE 1.36 MG/DL (0.40-0.90); GLUCOSE 95 MG/DL (70-104); MAGNESIUM 2.2 MG/DL (1.5-2.4); POTASSIUM 3.9 MMOL/L (3.5-5.1); SODIUM 143 MMOL/L (135-145); TOTAL CARBON DIOXIDE 26.9 MMOL/L (24-32); TOTAL PROTEIN 6.5 G/DL (6.4-8.2); eGFR 40 ML/MIN
--- NOTE | 2019-10-21 06:28 | NUR ---
Problems reprioritized. Patient report given, questions answered & plan of care reviewed with SYMONE Fountain.
--- NOTE | 2019-10-21 06:41 | NUR ---
Patient in room [facility] 354. I have received report from Morenita Duke RN and had the opportunity to ask questions and assume patient care.
[2019-10-21 07:00] VITALS: BP 145/80
[2019-10-21] MEDS: K and/or MAG REPLACEMENT MC SCH (08:00)
[2019-10-21] MEDS: lactobacillus rhamnosus 10,000 MMU CELLS/CAPSULE PO SCH (08:11)
[2019-10-21] MEDS: amLODIPine 5mg tablet PO SCH (08:11)
[2019-10-21] MEDS: amox tr/potassium clavulanate 875/125mg TAB PO SCH (08:11)
[2019-10-21] MEDS: metoprolol succinate 25mg (24-HOUR) SR. Tablet PO SCH (08:12)
[2019-10-21] MEDS: lactose-reduced food (Ensure Enlive) - 237ml bottle PO SCH ×2 (08:12→13:00)
[2019-10-21] MEDS: heparin, porcine 5000 units/ml vial SQ SCH (08:12)
[2019-10-21 11:00] VITALS: BP 144/85
[2019-10-21] MEDS ORDERED: AMOX-580 PO (14:41)
[2019-10-21] MEDS ORDERED: NOR5T PO (14:41)
--- NOTE | 2019-10-21 16:00 | NUR ---
patient seen by Dr kahn and Dr Dodson. patient is for discharge to follow up with Dr dodson in a week. patient discharged to home with spouse in private car . Appears stable for transfer
== END 2019-10-21 15:50 | disposition home or self-care (01) | DRG 871 ==
LOC: ER 16:19 → ED HOLD 19:16 → ORTHO 4S 21:25 → SUR 3N 10-15 16:37
PROVIDERS: ADMIT Family Medicine; ATTEND Family Medicine
PROC: 0W993ZZ Drainage of Right Pleural Cavity, Percutaneous Approach (ICD-10-PCS; principal; 2019-10-14)
PROC: 0W993ZZ Drainage of Right Pleural Cavity, Percutaneous Approach (ICD-10-PCS; 2019-10-15)
DX: A41.9 Sepsis, unspecified organism (principal); J96.90 Respiratory failure, unspecified, unspecified whether with hypoxia or hypercapnia; J69.0 Pneumonitis due to inhalation of food and vomit; N17.9 Acute kidney failure, unspecified; M47.9 Spondylosis, unspecified; G89.29 Other chronic pain; E87.6 Hypokalemia; Z20.828 Contact with and (suspected) exposure to other viral communicable diseases; I10 Essential (primary) hypertension; Z98.1 Arthrodesis status; Z83.3 Family history of diabetes mellitus; Z87.891 Personal history of nicotine dependence; Z28.21 Immunization not carried out because of patient refusal
CPT/HCPCS: 32555; 32557; 36415; 71045; 71046; 71250; 71270; 76937; 77012; 80048; 80053; 80202; 81001; 82945; 83605; 83615; 83735; 83986; 84145; 84157; 84484; 85025; 85610; 85730; 86703; 87040; 87070; 87081; 89051; 93005; 93306; 94640; 94667; 94668; 94760; 96365; 96375; 97162; 97530; 99285; G0378; J0456; J0696; J1170; J1644; J1650; J2270; J2405; J2543; J2997; J3010; J3370; J7030; J7626; Q9967

== ENCOUNTER → 2019-10-30 | Outpatient (CLI) | payer BC ==
[~2019-10-30] MED LIST changes: +ALBU8.5H8 INH; -AMOX-117 PO; +AMOX-580 PO; +FLUT1BLS3 INH; +HYDR-3972 PO; +LACT1CAP26 PO; +METO-395 PO; +NOR5T PO; +TRAZ-251 PO
== END | disposition home or self-care (01) ==
LOC: 64 CT 08:39
PROVIDERS: ATTEND Surgery
DX: J90 Pleural effusion, not elsewhere classified (principal)
CPT/HCPCS: 71250

== ENCOUNTER 2021-02-26 09:02 | Emergency (ER) | payer BC ==
[~2021-02-26] VITALS: Ht 157.5 cm; Wt 81.8 kg
[~2021-02-26 09:02] MED LIST changes: +ALBU8.5H17 INH; -ALBU8.5H8 INH
[2021-02-26] MEDS ORDERED: ALBUTEROL INHALER 1 PUFF/90 MCG INHALER IH PRN (09:15)
[2021-02-26] MEDS ORDERED: normal saline 1000ML IV soln IVB ONE (09:15)
[2021-02-26 09:48] LABS: BASOPHILS % (AUTO) 0.1 % (0-1); EOSINOPHILS % (AUTO) 0 % (0-6); HEMATOCRIT 38.5 % (35.0-45.0); HEMOGLOBIN 13.3 g/dl (12.0-16.0); LYMPHOCYTES # (AUTO) 0.6 X10'3 (1.1-4.8); LYMPHOCYTES % (AUTO) 7.9 % (21-51); MEAN CORPUSCULAR HEMOGLOBIN 29.9 PG (27.0-31.0); MEAN CORPUSCULAR HGB CONC 34.4 g/dL (33.0-36.5); MEAN CORPUSCULAR VOLUME 86.8 FL (78-98); MEAN PLATELET VOLUME 8.5 FL (7.4-10.4); MONOCYTES # (AUTO) 0.4 X10'3 (0-0.9); MONOCYTES % (AUTO) 5.4 % (2-12); NEUTROPHILS # (AUTO) 6.3 X10'3 (1.8-7.7); NEUTROPHILS % (AUTO) 86.6 % (42-75); PLATELET COUNT 217 X10'3 (140-440); RED BLOOD COUNT 4.44 X10'6 (4.20-5.60); RED CELL DISTRIBUTION WIDTH 13.4 % (11.5-14.5); WHITE BLOOD COUNT 7.2 X10'3 (4.5-11.0)
[2021-02-26 09:55] LABS: D-DIMER 0.62 MG/L FEU (0-0.50)
[2021-02-26 09:58] LABS: ALANINE AMINOTRANSFERASE 20 U/L (12-78); ALBUMIN 2.7 G/DL (3.4-5.0); ALBUMIN/GLOBULIN RATIO 0.6 (1.1-1.5); ALKALINE PHOSPHATASE 79 IU/L (46-116); ANION GAP 9 (8-16); ASPARTATE AMINO TRANSFERASE 20 U/L (10-37); BILIRUBIN,TOTAL 0.2 MG/DL (0.1-1.0); BLOOD UREA NITROGEN 19 MG/DL (7-18); BUN/CREATININE RATIO 20.9 (6.6-38.0); C-REACTIVE PROTEIN 21.87 MG/DL (0.0-0.5); CALCIUM 9.1 MG/DL (8.5-10.1); CHLORIDE 102 MMOL/L (99-107); CREATININE 0.91 MG/DL (0.40-0.90); GLUCOSE 119 MG/DL (70-104); POTASSIUM 4.1 MMOL/L (3.5-5.1); SODIUM 140 MMOL/L (135-145); TOTAL CARBON DIOXIDE 29.3 MMOL/L (24-32); TOTAL PROTEIN 7.4 G/DL (6.4-8.2); eGFR 63 ML/MIN
[2021-02-26] MEDS ORDERED: dexamethasone sod phosphate 10mg/ml inj IV STA (10:31)
[2021-02-26] MEDS ORDERED: iohexol 350MG/ML 100ml bottle IV ONE (10:40)
[2021-02-26] MEDS ORDERED: CefTRIAXone 2gm/D5W 50ml BAG 50 ML IV ONE (10:50)
[2021-02-26] MEDS ORDERED: azithromycin/NS 500mg/250ml 250 ML IV ONE (10:50)
--- NOTE | 2021-02-26 11:56 | NUR ---
O2 SAT AT REST ON RA 87% RECOVERY SAT ON 2L 96%
[2021-02-26] MEDS ORDERED: AZIT500T PO (12:10)
[2021-02-26] MEDS ORDERED: ALBU6.7H9 INH (12:10)
[2021-02-26] MEDS ORDERED: DEXA6TAB6 PO (12:10)
[2021-02-26 15:40] VITALS: BP 140/87
== END 2021-02-26 15:42 | disposition home or self-care (01) ==
LOC: ER 09:03
DX: U07.1 COVID-19 (principal); J12.82 Pneumonia due to coronavirus disease 2019; J96.01 Acute respiratory failure with hypoxia; J45.909 Unspecified asthma, uncomplicated; G89.29 Other chronic pain; Z87.01 Personal history of pneumonia (recurrent); Z79.2 Long term (current) use of antibiotics; Z79.899 Other long term (current) drug therapy
CPT/HCPCS: 36415; 71045; 71275; 80053; 84145; 85025; 85379; 86140; 93005; 96365; 96366; 96368; 96375; 99291; J0456; J0696; J1100; J7030; Q9967; 99285